=== PATIENT | female | born 1985 | race African-American/Black ===

== ENCOUNTER 2016-12-06 11:52 | Emergency (ER) | payer OTHER ==
[2016-12-06] MEDS ORDERED: ACETAMINOPHEN 325 MG TABLET PO ONE (12:32)
--- NOTE | 2016-12-06 12:33 | ER Document Report ---
ED Medical Screen (RME) - General Stated Complaint: COUGH Mode of Arrival: Ambulatory Information source: Patient Notes: Patient complains of cough, sore throat, and fever for the past 4 days. Temperature 100.4 at home. hx: Arthritis I have greeted and performed a rapid initial assessment of this patient. A comprehensive ED assessment and evaluation of the patient, analysis of test results and completion of the medical decision making process will be conducted by additional ED providers. TRAVEL OUTSIDE OF THE [place] IN LAST 30 DAYS: No - Related Data Allergies/Adverse Reactions: No Known Allergies Allergy (Unverified 09/06/14 22:24) Past Medical History Psychiatric Medical History: Reports: Hx Depression - Anxiety, eating disorder Past Surgical History: Reports: Hx Orthopedic Surgery - bilateral knees, lt thumb - Immunizations Hx Diphtheria, Pertussis, Tetanus Vaccination: Yes Physical Exam - Vital signs Vitals: Temp Pulse Resp BP Pulse Ox 99.7 F 98 16 119/71 99 12/06/16 12:12/06/16 12:12/06/16 12:12/06/16 12:12/06/16 12:29 - HEENT Pharynx: Erythema. No: Exudate Course - Vital Signs Vital signs: Temp Pulse Resp BP Pulse Ox 99.7 F 98 16 119/71 99 12/06/16 12:29 12/06/16 12:29 12/06/16 12:29 12/06/16 12:29 12/06/16 12:29
--- NOTE | 2016-12-06 14:57 | ER Document Report ---
ED General - General Chief Complaint: Cough Stated Complaint: COUGH Mode of Arrival: Ambulatory TRAVEL OUTSIDE OF THE [place] IN LAST 30 DAYS: No - HPI Patient complains to provider of: cough sore throat fever Notes: Patient coming for evaluation of coughs fever shortness throat ongoing for last 4 days denies any sick contacts. Patient states she was at home or not aiding in her symptoms. Patient denies any recent antibiotics denies any recent travel. - Related Data Allergies/Adverse Reactions: No Known Allergies Allergy (Unverified 09/06/14 22:24) Past Medical History - General Information source: Patient - Social History Smoking Status: Unknown if Ever Smoked Family History: Reviewed & Not Pertinent Renal/ Medical History: Denies: Hx Peritoneal Dialysis Psychiatric Medical History: Reports: Hx Depression - Anxiety, eating disorder Past Surgical History: Reports: Hx Orthopedic Surgery - bilateral knees, lt thumb - Immunizations Hx Diphtheria, Pertussis, Tetanus Vaccination: Yes Review of Systems - Review of Systems Constitutional: Fever EENT: Throat pain Cardiovascular: No symptoms reported Respiratory: No symptoms reported Gastrointestinal: No symptoms reported Genitourinary: No symptoms reported Female Genitourinary: No symptoms reported Musculoskeletal: No symptoms reported Skin: No symptoms reported Hematologic/Lymphatic: No symptoms reported Neurological/Psychological: No symptoms reported -: Yes All other systems reviewed and negative Physical Exam - Vital signs Vitals: Temp Pulse Resp BP Pulse Ox 99.7 F 98 16 119/71 99 12/06/16 12:29 12/06/16 12:29 12/06/16 12:29 12/06/16 12:29 12/06/16 12:29 Interpretation: Normal - General General appearance: Appears well, Alert - HEENT Head: Normocephalic, Atraumatic Eyes: Normal Pupils: PERRL - Respiratory Respiratory status: No respiratory distress Chest status: Nontender Breath sounds: Normal Chest palpation: Normal - Cardiovascular Rhythm: Regular Heart sounds: Normal auscultation Murmur: No - Abdominal Inspection: Normal Distension: No distension Bowel sounds: Normal Tenderness: Nontender Organomegaly: No organomegaly - Back Back: Normal, Nontender - Extremities General upper extremity: Normal inspection, Nontender, Normal color, Normal ROM , Normal temperature General lower extremity: Normal inspection, Nontender, Normal color, Normal ROM , Normal temperature, Normal weight bearing. No: Michael's sign - Neurological Neuro grossly intact: Yes Cognition: Normal Orientation: AAOx4 [place] Coma Scale Eye Opening: Spontaneous Sandi Coma Scale Verbal: Oriented Sandi Coma Scale Motor: Obeys Commands [place] Coma Scale Total: 15 Speech: Normal Motor strength normal: LUE, RUE, LLE, RLE Sensory: Normal - Psychological Associated symptoms: Normal affect, Normal mood - Skin Skin Temperature: Warm Skin Moisture: Dry Skin Color: Normal Course - Re-evaluation Re-evalutation: 12/06/16 20:24 Patient has been evaluated for flulike symptoms. At this time there is no signs of serious illness no signs of sepsis or other serious etiologies. Patient was educated about the disease process. Patient was placed on the appropriate medications to help with their symptoms. Patient was also encouraged to drink plenty of fluids and stay well hydrated. Patient is to followup with their primary care provider. - Vital Signs Vital signs: Temp Pulse Resp BP Pulse Ox 98.9 F 92 16 122/72 100 12/06/16 15:00 12/06/16 15:00 12/06/16 15:00 12/06/16 15:00 12/06/16 15:00 Discharge - Discharge Clinical Impression: Viral illness Disposition: HOME, SELF-CARE Instructions: Acetaminophen, Fever ([facility]), Viral Syndrome ([facility]) Additional Instructions: Your symptoms are consistent with a viral illness. Your examination today shows no signs of strep shows no signs of pneumonia. Please follow-up with your primary care physician. Continue to drinking of water he may also try honey for cough suppression. 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 continue to take cough and cold DayQuil and NyQuil. Prescriptions: Prednisone [Deltasone 20 mg Tablet] 60 mg PO DAILY 5 Days Forms: Return to Work
[2016-12-06 15:04] VITALS: BP 122/72
== END 2016-12-06 15:00 | disposition home or self-care (01) ==
LOC: ER 11:52
DX: B34.9 Viral infection, unspecified (principal); R05 Cough; J02.9 Acute pharyngitis, unspecified; R50.9 Fever, unspecified
CPT/HCPCS: 71020; 87070; 87880; 99283